=== PATIENT | female | born 1960 | race Caucasian/White ===

== ENCOUNTER → 2018-08-17 10:44 | Outpatient (CLI) | payer OTHER, SELFPAY ==
--- OUTSIDE RECORDS SUMMARY | 2018-10-03 12:52 | XMS RPT_ITS ---
:1960 Author Organization OHIP Care Team Providers Name Role Phone Sima Avelar Attending Unavailable Sima Avelar Referring Unavailable Sima Avelar Attending Unavailable Anjel Parks Primary Care Unavailable PROBLEMS PROBLEMS DATE TYPE CONDITION / CODE ATTENDING STATUS SOURCE 08/17/2018 Unknown R30.0 - Dysuria Sima Avelar Active [place] / R30.0(ICD-10) [facility] Repository PROCEDURES PROCEDURES No Procedure Records FoundRESULTS RESULTS CBC W/DIFF, AUTOMATED Collected: 08/18/2018 Status: F Source: [place] 11:29 AM [facility] TYPE CODE TESTS RESULT OUT OF RANGE REFERENCE UNITS LAB L100.1000 4.4-11.0 K/mm3 Low WBC 4.2 LAB L100.1200 4.2-5.4 M/mm3 Normal RBC 4.74 LAB L100.1300 12.0-15.0 g/dl Normal HGB 12.9 LAB L100.1400 37-47 % Normal HCT 40.6 LAB L100.1500 81-99 fL Normal MCV 85.7 LAB L100.1600 27.0-32.0 pg Normal MCH 27.2 LAB L100.1700 32-36 g/gl Low MCHC 31.8 LAB L100.1810 11.6-14.6 % Normal RDW CV 14.0 LAB L100.1820 35.1-43.9 fl Normal RDW SD 43.1 LAB L100.1900 150-450 K/mm3 Normal PLT 238 LAB L100.2000 6.2-12.0 fl Normal MPV 10.4 LAB L100.2100 47-70 % Normal NEUT% 59.7 LAB L100.2200 19-41 % Normal LY% 30.5 LAB L100.2300 0-10 % Normal MONO% 8.4 LAB L100.2400 0-5 % Normal EO% 1.2 LAB L100.2500 0-1 % Normal BASO% 0.2 LAB L100.2550 0.0-0.9 % Normal IM GRAN % 0.000 Result Comment: IG% - Immature Granulocytes (promyelocytes, myelocytes and metamyelocytes) > 1% indicates that a LEFT SHIFT is Present. LAB L100.2620 2.0-7.7 X10 3/uL Normal Absolute Neut 2.5 LAB L100.2720 0.83-4.51 X10 3/ul Normal Absolute Lymph 1.27 Performed By: #### L100.0100, L500.2500 #### [facility] [place], [address] BASIC METABOLIC Collected: 08/18/2018 Status: F Source: [place] PROFILE (BMP) 11:29 AM [facility] [place] TYPE CODE TESTS RESULT OUT OF RANGE REFERENCE UNITS LAB L501.0100 74-106 mg/dL Normal GLU 80 Result Comment: Please note revised GLUCOSE reference range effective 2017. LAB L501.1000 7-18 mg/dL Normal BUN 15 LAB L501.1100 0.55-1.02 mg/dL Normal CREAT,SERUM 0.79 Result Comment: The validity of the calculated GFR AND GFRAA in patients over 70 years has not been determined. Clinical correlation is essential. LAB L501.1110 >60 mL/min Normal EST GFR 79 Result Comment: Non- GFR Calc LAB L501.1115 >60 mL/min Normal EST GFR - AA 95 Result Comment: GFR Calc LAB L501.1300 10-20 RATIO Normal BUN/CRE 18.9 LAB L501.2200 8.5-10.1 mg/dL CA Normal 8.8 LAB L501.5300 136-145 mmol/L NA Normal 143 LAB L501.5600 3.5-5.1 mmol/L K Normal 4.2 LAB L501.5900 98-107 mmol/L CL Normal 106 LAB L501.6100 21.0-32.0 mmol/L Normal CO2 29.0 LAB L501.6200 5-15 Normal GAP 8 Performed By: #### L100.0100, L500.2500 #### [facility] [address] [place], [address] Observed: 08/16/2018 Status: F Source: MILI CULTURE, URINE 5:05 PM [facility] Urine Culture Below infection level. ORGANISM 1: Mixed Gram Pos AND Gram Neg Org [place] Count 1000-10,000 Performed By: #### M100.0650 #### [facility] [address] [place], [address] ALLERGIES ALLERGIES No Allergies Records FoundENCOUNTERS ENCOUNTERS ADMIT/DISCHARGE ACCOUNT ADMITTING ENCOUNTER LOCATION SOURCE NUMBER CLASS 08/18/2018 [id number] Ambulatory [facility] 1 [facility] ing:MFPLAB Repository 08/17/2018 [id number] Ambulatory [address] ing:LABSPEC Repository PAYERS PAYERS ENCOUNTER GUARANTOR PAYER SUBSCRIBER SOURCE 08/18/2018 MILDRED Grossman Primary MARCELO A [place] [id number] Insurance:MEDICAL ROBERTSDOB: [facility] [id number] Number: Repository [id number]: 330 [id number] [phone] () Date:[id number] [address]KO: 08/18/2018 Secondary NOT GIVENUNK Mili Insurance:SELF PAY [facility] Number: Effective Repository Date:2018-08-18 08/17/2018 MILDRED Grossman Primary MARCELO A [place] [id number] Insurance:MEDICAL ROBERTSDOB: [facility] [id number] Number: Repository [id number]: [phone] [id number] [phone] () Date:5915-17-91TQ [address] [address]LA: 08/17/2018 Secondary NOT GIVENUNK Mili Insurance:SELF [facility]Y [facility]: Effective Repository Date:2018-08-17
== END ==
PROVIDERS: Referring Provider Nurse Practitioner Adult Health; Visit Provider Nurse Practitioner Adult Health
DX: R30.0 Dysuria (principal)
CPT/HCPCS: 87086; 87088

== ENCOUNTER → 2018-08-18 11:27 | Outpatient (CLI) | payer OTHER, SELFPAY ==
[2018-08-18 14:13] LABS: Absolute Lymphocyte Count 1.27 X10^3/ul (0.83-4.51); Absolute Neutrophil Count 2.5 X10^3/uL (2.0-7.7); Basophil# 0.01 X10^3/uL; Basophil% 0.2 % (0-1); Eosinophil# 0.05 X10^3/uL; Eosinophils% 1.2 % (0-5); Hematocrit 40.6 % (37-47); Hemoglobin 12.9 g/dl (12.0-15.0); Lymphocyte # 1.27 X10^3/ul (4.0); Lymphocyte % 30.5 % (19-41); Mean Corp Hgb Conc 31.8 g/gl (32-36); Mean Corpuscular Hgb 27.2 pg (27.0-32.0); Mean Corpuscular Volume 85.7 fL (81-99); Mean Platelet Vol. 10.4 fl (6.2-12.0); Monocyte# 0.35 X10^3/uL; Monocyte% 8.4 % (0-10); Neutrophil # 2.48 X10^3/uL (2.7-7.7); Neutrophil % 59.7 % (47-70); Platelet Count 238 K/mm3 (150-450); RBC Distribution Width SD 43.1 fl (35.1-43.9); Red Blood Count 4.74 M/mm3 (4.2-5.4); White Blood Count 4.2 K/mm3 (4.4-11.0)
[2018-08-18 14:16] LABS: POSITIVE COUNT NO; POSITIVE DIFFERENTIAL NO; POSITIVE MORPHOLOGY NO
[2018-08-18 14:22] LABS: Anion Gap 8 (5-15); BUN 15 mg/dL (7-18); BUN/Creat Ratio 18.9 RATIO (10-20); Calcium,Total 8.8 mg/dL (8.5-10.1); Chloride 106 mmol/L (98-107); Creatinine, Serum 0.79 mg/dL (0.55-1.02); EST Glomerular Filtration Rate 79 mL/min (>60); Est Glom Filt Rate - Afr Amer 95 mL/min (>60); Glucose 80 mg/dL (74-106); Potassium 4.2 mmol/L (3.5-5.1); Sodium Level 143 mmol/L (136-145)
--- OUTSIDE RECORDS SUMMARY | 2018-10-04 06:53 | XMS RPT_ITS ---
:1960 Author Organization OHIP Care Team Providers Name Role Phone Sima Avelar Attending Unavailable Sima Avelar Referring Unavailable Sima Avelar Attending Unavailable Anjel Parks Primary Care Unavailable PROBLEMS PROBLEMS DATE TYPE CONDITION / CODE ATTENDING STATUS SOURCE 08/17/2018 Unknown R30.0 - Dysuria Sima Avelar Active [place] / R30.0(ICD-10) [facility] Repository PROCEDURES PROCEDURES No Procedure Records FoundRESULTS RESULTS CBC W/DIFF, AUTOMATED Collected: 08/18/2018 Status: F Source: MILI 11:29 AM [facility] REPOSITORY TYPE CODE TESTS RESULT OUT OF [...] 1.27 Performed By: #### L100.0100, L500.2500 #### [facility] [place], [address] BASIC METABOLIC Collected: 08/18/2018 Status: F Source: [place] PROFILE (BMP) 11:29 AM [facility] REPOSITORY TYPE CODE TESTS RESULT OUT OF [...] 8 Performed By: #### L100.0100, L500.2500 #### [facility] [address] [place], [address] Observed: 08/16/2018 Status: F Source: MILI CULTURE, URINE 5:05 PM [facility] [place] REPOSITORY Urine Culture Below infection level. ORGANISM 1: Mixed Gram Pos AND Gram Neg Org [place] Count 1000-10,000 Performed By: #### M100.0650 #### [facility] [address] [place], [address] ALLERGIES ALLERGIES No Allergies Records FoundENCOUNTERS ENCOUNTERS ADMIT/DISCHARGE ACCOUNT ADMITTING ENCOUNTER LOCATION SOURCE NUMBER CLASS 08/18/2018 [id number] Ambulatory [facility] 1 [facility] ing:MFPLAB Repository 08/17/2018 [id number] Ambulatory [address] ing:LABSPEC Repository PAYERS PAYERS ENCOUNTER GUARANTOR PAYER SUBSCRIBER SOURCE 08/18/2018 MILDRED Grossman Primary MARCELO A [place] [id number] Insurance:MEDICAL ROBERTSDOB: [facility] [id number] Number: Repository [id number]: 330 [id number] [phone] () Date:[id number] [address]QD: 08/18/2018 Secondary NOT GIVENUNK Mili Insurance:SELF PAY [facility] Number: Effective Repository Date:2018-08-18 08/17/2018 MILDRED Grossman Primary MARCELO A iMli [id number] Insurance:MEDICAL ROBERTSDOB: [facility] 2089[place] Number: Repository [id number]: [phone] [id number] [phone] () Date:[id number] [address] [address]UX: 08/17/2018 Secondary NOT GIVENUNK Mili Insurance:SELF PAY [facility] Number: Effective Repository Date:2018-08-17
== END ==
PROVIDERS: Family Provider Family Medicine; PCP Family Medicine; Visit Provider Nurse Practitioner Adult Health
DX: R35.0 Frequency of micturition (principal)
CPT/HCPCS: 36415; 80048; 85025

== ENCOUNTER → 2019-09-20 17:43 | Outpatient (CLI) | payer OTHER, SELFPAY ==
[2019-09-25 16:32] LABS: HPV Reflexed? NOT INDICATED
== END ==
PROVIDERS: PCP Family Medicine; Referring Provider Nurse Practitioner Adult Health; Visit Provider Nurse Practitioner Adult Health
DX: Z01.419 Encounter for gynecological examination (general) (routine) without abnormal findings (principal)
CPT/HCPCS: 88175; G0145

== ENCOUNTER → 2019-11-11 10:39 | Outpatient (CLI) | payer OTHER, SELFPAY | PROVIDERS: PCP Family Medicine; Referring Provider Family Medicine; Visit Provider Family Medicine | DX: N39.0 Urinary tract infection, site not specified (principal) | CPT/HCPCS: 87086; 87088 ==

== ENCOUNTER 2020-06-25 05:56 | Day surgery (SDC) | payer OTHER, SELFPAY ==
--- NOTE | 2020-06-18 16:10 | EKG12_ITS ---
Test Reason : PREOP Blood Pressure : / mmHG Vent. Rate : 066 BPM Atrial Rate : 066 BPM P-R Int : 148 ms QRS Dur : 078 ms QT Int : 392 ms P-R-T Axes : 047 047 047 degrees QTc Int : 410 ms Normal sinus rhythm Normal ECG Confirmed by ANTHONY WERNER, NAYAN ([id number]), editorial clerk NILS FOURNIER ([id number]) on 06/19/2020 9:25:23 AM Referred By: Ally Zapien Confirmed By:NAYAN CRUZ MD
[2020-06-25] VITALS (7 sets, daily range): BP systolic 99–117; BP diastolic 65–74; PULSE 51–60; RESP 16; TEMP 36.2–36.6; O2SAT 97–100; BMI 27.1
[2020-06-25] MEDS: Lactated Ringers 1,000 ML 100 ML IV (07:00)
--- NOTE | 2020-06-25 07:22 | PCM.HP.STD ---
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 She now presents for biopsy under anesthesia with fulguration for treatment of tissue and hemostasis. Informed consent was obtained including a discussion of the risks of COVID-19.] Past Medical History Allergies No Known Allergies Allergy (Verified 06/25/20 06:42) Home Medications: Ambulatory Orders Medication Instructions Recorded NK 06/17/20 Smoking Status: Never smoker Tobacco Use: Non-smoker Review of Systems Constitutional: Denies: Anorexia, Chills, Fever, Night Sweats Eyes: Denies: Vision Change HEENT: Denies: Difficulty Swallowing, Visual Changes Cardiovascular: Denies: Chest Pain, Chest Pressure Respiratory: Denies: Cough, Shortness of Breath Gastrointestinal: Denies: Abdominal Pain, Nausea, Vomiting Genitourinary: Reports: Nocturia, Urgency. Denies: Dysuria, Hematuria, Hesitancy, Retention Gynecological: Denies: Vaginal itching Musculoskeletal: Denies: Muscle pain Skin: Denies: Wounds Neurological: Denies: Difficulty swallowing Endocrine: Denies: Change in Body Habitus VTE Information - Inpt Only VTE Present on Admission: Yes VTE Mechan Device Prophylaxis: SCD's VTE Pharm Prophylaxis ordered?: No Reason prophylaxis not ordered:: Treatment Not Indicated - Physical Exam Vitals/I&O's: Vital Signs Temp Pulse Resp BP Pulse Ox 97.8 F 60 16 117/69 97 06/25/20 06:43 06/25/20 06:43 06/25/20 06:43 06/25/20 06:43 06/25/20 06:43 Oxygen Delivery Method Room Air Weight: 78.6 kg Body Mass Index (BMI) 27.1 General: Alert, Oriented x3, Cooperative, No apparent distress HEENT: Atraumatic, Normocephalic Oral: Moist Mucosa Neck: Supple, Trachea Midline Lungs: Normal air movement Cardiovascular: Regular rate, Regular Rhythm Abdomen: Soft, Non Tender, Non-Distended Extremities: No clubbing, No cyanosis Skin: No rashes Musculoskeletal: No Muscle Wasting Neurological: Cranial nerves II-XII grossly intact, Neuro grossly intact Psych/Mental Status: Normal Affect, Alert and oriented to time, place, person, mood and affect Current Medications Cefazolin Sodium 2 gm/ Sodium (Chloride) 110 mls @ 150 mls/hr IV PREOP ONE Stop: 06/25/20 07:43 Lactated Ringer's () 1,000 mls @ 100 mls/hr IV .Q10H MARIBEL Last Admin: 06/25/20 07:00 Dose: 100 mls/hr Documented by: Assessment/Plan All Active Problems Neoplasm of uncertain behavior of bladder (Acute) Nocturia (Acute) Urgency of urination (Acute) Proceed with cystoscopy, bladder biopsy with fulguration Procedure Criteria Procedure Type: Elective COVID Risk Discussion: The surgeon/proceduralist and patient have discussed in detail the risk of exposure to and/or potential harm posed by the COVID-19 virus with having a surgery/procedure at this time versus the risk of delaying the surgery/procedure. It is not possible to know either the risk of delaying the surgery or procedure or chance of getting an infection with perfect accuracy, but a joint decision was made between the patient and the surgeon/proceduralist to proceed at this time with the scheduled surgery/procedure as indicated on the consent form.
[2020-06-25] MEDS: Cefazolin 2 GM in 0.9% Normal Saline 100 ML IV (07:29)
--- NOTE | 2020-06-25 07:30 | BLA_PTH ---
PATIENT: MARCELO KRUGER LOC: [facility] [place] U#:[id number] AGE/SX: 60/F ROOM: RE06/25/[address]: Dr. Ally Zapien MD : 1960 BED: DIS: 06/25/2020 SPEC #: [id number] RECD: 06/25/20 09:28 STATUS: OTIS KG #: [id number] RAZIA: 06/25/20 07:[address]: Ally Zapien DEPT: SURGICAL PATHOLOGY RECD BY: Erika Barfield ENTERED: 06/25/20 13:08 SP TYPE: BLADDER BX OTHR DR: Dr. Anjel Parks MD Tissues: Urinary bladder, NOS Procedures: Surgery Specimen Level IV HEADER OPERATION: Cystoscopy, bladder biopsy, fulguration PRE-OP DIAGNOSIS: Neoplasm of bladder, urgency, nocturia TISSUE SUBMITTED: Bladder biopsies MICROSCOPIC DIAGNOSIS Bladder, biopsy: Fragments of urothelial mucosa with moderate chronic inflammation, congestion and minimal acute inflammation. Negative for malignancy. See comment. CORINA:yoav 06/26/20 COMMENT Detrusor muscle is present in the submitted specimen. The epithelium is predominantly denuded. A few minute fragments of detached epithelium is noted and shows mild epithelial atypia, favor reactive. Clinical correlation and appropriate follow up are necessary. MICROSCOPIC DESCRIPTION Slides are reviewed. GROSS DESCRIPTION Received in fixative is one container labeled with the patient's name and designated bladder biopsy. The specimen consists of three irregular fragments of light hansen soft tissue that in aggregate measure 0.6 x 0.2 x 0.1 cm. The specimen is totally submitted in one cassette. / CORINA:yoav 06/25/20 TC:3 CPT: 24180
--- NOTE | 2020-06-25 07:35 | PCM.OPRPT ---
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 After obtaining informed consent, she was brought to the operating room today for definitive management. Patient was taken to the operating room and placed on the operating room table. Anesthesia monitored the head, neck, airway and IV access during the procedure. Once anesthesia was appropriately administered the patient was placed into dorsal lithotomy position and was prepped and draped in usual sterile fashion. A cystourethroscopy confirmed visualization of 4 separate ulcerations. 1 approximately 1 cm on the right lateral bladder wall, 2 smaller ulcerations in the left bladder dome and 1 ulceration approximately 1 cm in size in the posterior left aspect of the bladder wall. Biopsy forceps were used to obtain samplings of the ulcerations. These areas were then fulgurated for hemostatic control and tissue treatment. The patient's bladder was then emptied and the case was terminated. The patient tolerated the procedure without complications. She was taken to the recovery room in good condition. Grafts/Implants Used: none - Complications none - Admit VTE Documentation VTE Present on Admission: Yes VTE Mechan Device Prophylaxis: SCD's VTE Pharm Prophylaxis ordered?: No Reason prophylaxis not ordered:: Treatment Not Indicated
[2020-06-25] MEDS: Lubricating Jelly 60 GM Tube 30 GM TOPICAL (07:47)
--- NOTE | 2020-06-25 08:10 | PCM.DC.URO ---
Discharge Diet: No Restrictions Discharge Activity: May not drive while taking narcotic pain medications., May Shower, May Take a Tub Bath Call your doctor if you observe: Fever of 101 or Higher, Inability to urinate, Inability to have a bowel movement Allergies/Adverse Reactions: Allergies No Known Allergies Allergy (Verified 06/25/20 06:42) Medications to take at Discharge Cephalexin [Keflex] 500 mg PO Q12 3 Days #6 cap 06/25/20 Oxycodone HCl/Acetaminophen [Percocet 5/325] 2 tab PO Q8H PRN PRN 3 Days #10 tab 06/25/20 Phenazopyridine HCl [Pyridium] 200 mg PO TID PRN PRN 7 Days #30 tab 06/25/20 The following prescriptions were given: Cephalexin [Keflex] 500 mg PO Q12 3 Days #6 cap Transmission Status[facility] Oxycodone HCl/Acetaminophen [Percocet 5/325] 2 tab PO Q8H PRN PRN 3 Days #10 tab PRN Reason: Pain Transmission Status: [facility] Phenazopyridine HCl [Pyridium] 200 mg PO TID PRN PRN 7 Days #30 tab PRN Reason: Bladder Spasms Transmission Status: Re[facility] by [facility] Primary Care Physician: Momo Parks MD [Primary Care Provider] - Test Results: Test results from this visit will be discussed in further detail at your follow-up appointment, if applicable. Please Follow Up With: Ally Zapien MD When: call for appt to be seen in 1 week Proposed Discharge Date: 06/25/20
== END 2020-06-25 09:35 | disposition home or self-care (01) ==
LOC: SDC 05:56 → AC 06:01
PROVIDERS: Anesthesiology; PCP Family Medicine; Referring Provider Urology; Visit Provider Urology
PROC: 0TBB8ZX Excision of Bladder, Via Natural or Artificial Opening Endoscopic, Diagnostic (ICD-10-PCS; CPT 52204; principal; 2020-06-25 07:20)
DX: D41.4 Neoplasm of uncertain behavior of bladder (principal); R35.1 Nocturia; R39.15 Urgency of urination; Z20.818 Contact with and (suspected) exposure to other bacterial communicable diseases
CPT/HCPCS: 00910; 52204; 87635; 88305; 93005; C9803; J7120; J2405; U0003

== ENCOUNTER → 2020-12-10 15:29 | Outpatient (CLI) | payer OTHER, SELFPAY ==
[2020-06-25 06:43] VITALS: BMI 27.1
[2020-12-10 15:32] LABS: Mucous, Urine 0 SEEN /hpf (<or=2+); White Blood Cells 0 SEEN /hpf (0-5)
[2020-12-10 18:17] LABS: Color, Urine Yellow (Yellow); Glucose, Dipstick Normal (Normal); Ketone-Dipstick Negative (Negative); Leukocyte Esterase-Dipstick Negative /ul (Negative); Nitrite-Dipstick Negative (Negative); Occult Blood-Urine 50 /ul (Negative); Protein-Dipstick Negative (Negative); Specific Gravity, Urine 1.015 (1.002-1.030); Urine Bilirubin Dipstick Negative (Negative); Urine Clarity Clear (Clear); Urine Urobilinogen Normal (Normal)
[2020-12-10 18:33] LABS: Anion Gap 3 (5-15); BUN 18 mg/dL (7-18); BUN/Creat Ratio 21.6 RATIO (10-20); Bacteria 2+ /hpf (None Seen); Chloride 105 mmol/L (98-107); Creatinine, Serum 0.83 mg/dL (0.55-1.02); EST Glomerular Filtration Rate 74 mL/min (>60); Est Glom Filt Rate - Afr Amer 89 mL/min (>60); Glucose 81 mg/dL (74-106); Potassium 4.3 mmol/L (3.5-5.1); Red Blood Cells-Urine 0-5 SEEN /hpf (0-5); Sodium Level 138 mmol/L (136-145); Squamous Epithelial Cells - UA 0-5 SEEN /hpf (5-10); T4 Free Direct 0.74 ng/dL (0.76-1.46); Thyroid Stim Hormone (TSH) 4.59 uIU/mL (0.358-3.74)
== END ==
PROVIDERS: PCP Family Medicine; Visit Provider Family Medicine
DX: R94.6 Abnormal results of thyroid function studies (principal); R31.9 Hematuria, unspecified; Z13.1 Encounter for screening for diabetes mellitus
CPT/HCPCS: 36415; 80048; 81001; 84439; 84443

== ENCOUNTER → 2020-12-17 17:00 | Outpatient (CLI) | payer OTHER, SELFPAY ==
[2020-06-25 06:43] VITALS: BMI 27.1
--- NOTE | 2020-12-17 16:53 | BI_ITS ---
MAMMOGRAPHY - BILATERAL SCREENING REASON FOR EXAM: Female, 60 years old. Routine annual screening examination. PERTINENT HISTORY: Non-contributory. TECHNIQUE: Digital bilateral breast sofia (3D mammographic acquisition) in the CC and MLO projections. 2-D mediolateral oblique (MLO) and craniocaudad (CC) views of both breasts were obtained. CAD: Full Field Digital Mammography with Computer Added Detection was performed. COMPARISON: Comparison is made with prior outside examination dated 12/12/2008. FINDINGS: Breast Composition: The breasts are heterogeneously dense, which may obscure small masses. There is a 7.3 mm x 1 cm spiculated nodule in the axillary region of the left breast. There is also evidence of a 1 cm x 1 cm spiculated nodule in the deep slightly upper medial portion of the left breast. Correlation with ultrasound of the 2 spiculated nodules is recommended. No other significant abnormalities are identified. BI/SCRN MAMM (CAD)W/SOFIA BILAT IMPRESSION: 7.3 mm x 1 sinus Reba nodule in the left axillary region as well as a 1 cm x 1 sinus progression nodule in the deep slightly upper medial portion of left breast as described. Correlation with ultrasound is recommended. ASSESSMENT CATEGORY: BIRADS Category 0: Incomplete. Need additional imaging evaluation. A letter regarding these results will be sent to the patient by the facility within 30 days. Approximately 10% of breast cancers are not detected by mammography. A normal mammogram should not delay biopsy of a clinically suspicious abnormality. [id number] Electronically Signed: Benjy Peterson MD at 8:39 EDT , Service support ,
== END ==
PROVIDERS: PCP Family Medicine; Referring Provider Family Medicine; Visit Provider Family Medicine
DX: Z12.31 Encounter for screening mammogram for malignant neoplasm of breast (principal)
CPT/HCPCS: 77063; 77067

== ENCOUNTER → 2020-12-23 14:58 | Outpatient (CLI) | payer OTHER, SELFPAY ==
[2020-06-25 06:43] VITALS: BMI 27.1
--- NOTE | 2020-12-23 15:01 | US_ITS ---
STUDY: ULTRASOUND BREAST - LEFT REASON FOR EXAM: Female, 60 years old. Abnormal screening mammogram. TECHNIQUE: Axial and longitudinal images of the LEFT breast were performed with a high resolution ultrasound transducer. # OF IMAGES: 24 COMPARISON: Comparison is made with prior mammogram dated 12/17/2020. FINDINGS: LEFT Breast: There is a hypoechoic irregular nodule with shadowing at the 11 o''clock position of the breast at 5 cm from the nipple. This measures 6 mm x 6 mm x 9 mm. Biopsy is recommended. A similar appearing hypoechoic irregular nodule is seen at the 10 o''clock position the breast at 4 cm from nipple. This measures 1 cm x 0.9 cm x 0.8 cm. US/Breast Limited Unilateral IMPRESSION: 2 suspicious nodules at the 10 o''clock and 11 o''clock position of the breast as described. Biopsy is recommended. ASSESSMENT CATEGORY: BIRADS Category 4: Suspicious - Biopsy Should Be Considered. A letter regarding these results will be sent to the patient by the facility within 30 days. Electronically Signed: Benjy Peterson MD at 15:37 EDT , Service support ,
== END ==
PROVIDERS: PCP Family Medicine; Referring Provider Family Medicine; Visit Provider Family Medicine
DX: R92.8 Other abnormal and inconclusive findings on diagnostic imaging of breast (principal); N63.22 Unspecified lump in the left breast, upper inner quadrant
CPT/HCPCS: 76642

== ENCOUNTER → 2021-02-26 09:56 | Outpatient (CLI) | payer OTHER, SELFPAY ==
[2020-06-25 06:43] VITALS: BMI 27.1
[2021-02-26 12:55] LABS: Cholesterol 214 mg/dL (200); High Density Lipoprotein 51 mg/dL; T4 Free Direct 1.05 ng/dL (0.76-1.46); Thyroid Stim Hormone (TSH) 2.34 uIU/mL (0.358-3.74); Triglycerides 83 mg/dL; Very Low Density Lipoprotein 17 mg/dL (5-40)
== END ==
PROVIDERS: PCP Family Medicine; Referring Provider Family Medicine; Visit Provider Family Medicine
DX: E03.9 Hypothyroidism, unspecified (principal); Z13.220 Encounter for screening for lipoid disorders
CPT/HCPCS: 36415; 80061; 84439; 84443

== ENCOUNTER → 2021-06-26 10:28 | Outpatient (CLI) | payer OTHER, SELFPAY ==
--- NOTE | 2021-06-26 11:20 | RAD_ITS ---
STUDY: X-RAY - LUMBAR SPINE REASON FOR EXAM: Female, 61 years old. PAIN, NKI TECHNIQUE: 4 view(s) of the lumbar spine were obtained. COMPARISON: None FINDINGS: Normal lumbar lordosis. Moderate levoscoliosis of the thoracolumbar spine. There is a normal alignment of the vertebrae. Normal vertebral bodies and endplates. Normal disc space heights. Facet hypertrophy lower lumbar spine consistent with degenerative disc disease. The soft tissue structures are unremarkable. RAD/L/S Spine Min 4 Views IMPRESSION: Moderate levoscoliosis of the thoracic lumbar spine with degenerative disc disease in lower lumbar spine. Electronically Signed: Yung Garcia MD at 8:24 EDT Tel , Service support ,
== END ==
PROVIDERS: PCP Family Medicine; Visit Provider Chiropractor
DX: S33.5XXA Sprain of ligaments of lumbar spine, initial encounter (principal); X58.XXXA Exposure to other specified factors, initial encounter; Y93.9 Activity, unspecified; Y92.9 Unspecified place or not applicable; Y99.9 Unspecified external cause status
CPT/HCPCS: 72110

== ENCOUNTER 2021-11-12 11:57 | Outpatient (CLI) | payer OTHER, SELFPAY ==
[2021-11-12 15:34] LABS: Anion Gap 4 (5-15); BUN 19 mg/dL (7-18); BUN/Creat Ratio 21.3 RATIO (10-20); Calcium,Total 9.4 mg/dL (8.5-10.1); Chloride 103 mmol/L (98-107); Creatinine, Serum 0.89 mg/dL (0.55-1.02); EST Glomerular Filtration Rate 68 mL/min (>60); Est Glom Filt Rate - Afr Amer 82 mL/min (>60); Glucose 87 mg/dL (74-106); Magnesium 2.8 mg/dL (1.6-2.6); Phosphorus 4.1 mg/dL (2.5-4.9); Potassium 4.1 mmol/L (3.5-5.1); Sodium Level 138 mmol/L (136-145); T4 Free Direct 1.07 ng/dL (0.76-1.46); Thyroid Stim Hormone (TSH) 2.75 uIU/mL (0.358-3.74)
[2021-11-12 15:39] LABS: PTHIN 50.6 pg/mL (18.4-80.1)
== END 2021-11-12 23:59 | disposition home or self-care (01) ==
LOC: MFPLAB 11:58
PROVIDERS: PCP Family Medicine; Referring Provider Family Medicine; Visit Provider Family Medicine
DX: M81.0 Age-related osteoporosis without current pathological fracture (principal); E03.9 Hypothyroidism, unspecified
CPT/HCPCS: 36415; 80048; 82306; 82330; 83735; 83970; 84100; 84439; 84443

== ENCOUNTER 2021-12-16 07:00 | Outpatient (RCR) | payer OTHER, SELFPAY ==
--- NOTE | 2021-11-18 17:07 | HP.PTEVAL ---
Patient's Visit Information MARCELO KRUGER is a 61 year old F referred to Physical Therapy by Dr. Momo Parks MD with a diagnosis of SCOLIOSIS AND BACK PAIN. Date of Evaluation: 11/18/21 Physical Therapist: Zak Looney PT, Cert MDT, OCS - Visit Plan Frequency: 1-2x /Week Duration: 4 Weeks Plan: PT INTERVTIONS LUMBAR/THORACIC STRETCHING,POSTURAL EX'S, AND DLS AND/BACK - Subjective This 61 y/o female presents to physical therapy with back pain scoliosis. Patient has intermittent back many years. Pain located symmetrical lumbar. Patient has had x-rays DDD /scoliosis . Patient has had chiropractor in past . Patient aggravating. lifting, bending ,sitting to get up ,driving 2 hours. Alleviating factors exercises and rest. Denies paresthesia/tingling. Bowel/bladder-. Coughing/sneezing-. Concerned about slowing process of scoliosis . Patient able to sleep. Patient goals to improve posture and scoliosis. SOCIAL: . VOCATION: [employer]ing [employer]. - Pain Bilateral Back Pain Intensity (Out of 10): 2 - Objective POSTURE: mild forward posture, right pelvis elevated ,left scoliosis ,decrease lordosis. GAIT: reciprocal pattern ,scoliosis right ,leans backward. NEURO: denies paresthesia/tingling, reflexes L3-4,L4-5,L5-S1 1/3. MMT: quads/hams 4/5 hip flexion 4/5 ,hip abd 4-/5,ankle 4/5. FLEXABLITY: hamstrings min tight. LUMBAR ROM: flexion mod loss ,mod loss ,side glides min /mod loss - Special Tests L/S Slump test left side: Negative L/S Slump test right side: Negative L/S Left Straight Leg Raise: Negative L/S Right Straight Leg Raise: Negative - Balance/Special Test Scores Oswestry Low Back Score: 14 - Goals Goal 1:: Patient to be I with HEP for posture and DLS Goal Time Frame: 4-6 Weeks Goal 2:: Patient improve lumbar ROM for function of recovery for ADLS and job demands Goal Time Frame: 4-6 Weeks Goal 3:: Patient improve posture and positioning 60% of the time to improve function. Goal Time Frame: 4-6 Weeks Goal 4:: Patient to improve back oswestry score by 5 points or > to improve function and QOL Goal Time Frame: 4-6 Weeks Goal 5:: Patient to demonstrate 50% improvement with increase function and transitional movements job and housework tasks Goal Time Frame: 4-6 Weeks - Rehabilitation Potential Physical Therapy Diagnosis: Patient has postural deficits with scoliosis with some pain with transitional movement due to back and generalized weakness. thus will benefit from skilled PT Rehabilitation Potential: Good - Anticipated Interventions Patient/Client Instruction: Educate patient on: Condition, Plan of Care For the Purpose of:: To decrease pain, To increase ROM, To improve muscle performance and motor function, To improve ability to perform ADL's, To increase tolerance to activity/condition/position, To improve ability of physical actions for home/community/work/leisure, To improve health of tissue, To decrease soft tissue restriction, To increase flexibility/ROM, To reduce risk of recurrence, To prevent re-injury Therapeutic Exercise to Include: Strength training, Endurance training, Body mechanics, Postural training, Flexibilty training, Active ROM, Dynamic Lumbar Stabilization For the Purpose of:: To decrease pain, To increase ROM, To improve ability to perform ADL's, To increase tolerance to activity/condition/position, To improve ability of physical actions for home/community/work/leisure, To improve health of tissue, To decrease soft tissue restriction, To increase flexibility/ROM Thank you for the opportunity to evaluate your patient. For Medicare and Medicare HMO plans, please review the plan of care and approve it. It will need to be FAXED BACK to us at [phone] for Medicare purposes. For Medicare only, by signing this I certify the plan of care. Please let me know if there are questions or concerns regarding this plan of care. Physician Signature: Date:
--- NOTE | 2021-12-16 07:32 | HP.PTDCSUM ---
It has been my pleasure to treat MARCELO KRUGER referred by Dr. Momo Parks MD, with the diagnosis of SCOLIOSIS AND BACK PAIN for a total of 5 visit(s). Discharge Date: 12/16/21 Please see the following information for a summary of their discharge status. Subjective: Doing bettter Bilateral Back Pain Intensity (Out of 10): 0 % Improvement: 50 Objective/Function: POSTURE: SCOLIOSIS. GAIT:RECIPROCAL PATTERN. MMT: 4/5 BLE. LUMBAR ROM: flexion min loss, extension min loss left roation Goal 1:: Patient to be I with HEP for posture and DLS Goal Progress: Goal Met Goal 2:: Patient improve lumbar ROM for function of recovery for ADLS and job demands Goal Progress: Goal Met Goal 3:: Patient improve posture and positioning 60% of the time to improve function. Goal Progress: Goal Met Goal 4:: Patient to improve back oswestry score by 5 points or > to improve function and QOL Goal Progress: Goal Met Goal 5:: Patient to demonstrate 50% improvement with increase function and transitional movements job and housework tasks Goal Progress: Goal Met Plan: D/C Discharge Comments: hep If there are questions or concerns regarding this patient's physical therapy, please feel free to call me at [phone]. Thank you for the referral of this patient. Sincerely, Zak Looney PT, Cert MDT, OCS Balance/Gait/Functional tests - Balance/Special Test Scores Oswestry Low Back Score: 1
== END 2021-12-16 19:00 | disposition home or self-care (01) ==
LOC: PT 07:00
PROVIDERS: PCP Family Medicine; Referring Provider Family Medicine; Visit Provider Family Medicine
DX: M41.9 Scoliosis, unspecified (principal); M54.9 Dorsalgia, unspecified
CPT/HCPCS: 97110; 97162

== ENCOUNTER → 2022-01-16 | Outpatient (CLI) | payer OTHER, SELFPAY ==
[2022-01-16 09:05] VITALS: BP 134/82; PULSE 68; RESP 16; TEMP 36.2; O2SAT 100
[2022-01-16] MEDS: 0.9% NaCl Peripheral Flush Adult/Peds IV (09:18)
[2022-01-16] MEDS: Zoledronic Acid 5 MG 100 ML 150 MG IV (09:21)
[2022-01-16 10:02] VITALS: BP 128/68; PULSE 61; RESP 12; TEMP 36.3; O2SAT 98
== END | disposition home or self-care (01) ==
LOC: MEDOUTP 08:42
PROVIDERS: PCP Family Medicine; Referring Provider Family Medicine; Visit Provider Family Medicine
DX: M81.0 Age-related osteoporosis without current pathological fracture (principal)
CPT/HCPCS: 96365; A4216; J3489

== ENCOUNTER → 2022-11-24 | Outpatient (CLI) | payer OTHER, SELFPAY ==
[2022-11-24 13:04] LABS: ALB/GLOB Ratio 1.2 RATIO (0.9-2.4); AST(SGOT) 18 U/L (15-37); Alanine Aminotransfer ALT/SGPT 32 U/L (13-56); Albumin, Serum 3.7 g/dL (3.2-5.0); Alkaline Phosphatase 49 U/L (45-117); Anion Gap 6 (5-15); BUN 20 mg/dL (7-18); BUN/Creat Ratio 22.1 RATIO (10-20); Calcium,Total 9.2 mg/dL (8.5-10.1); Chloride 105 mmol/L (98-107); Cholesterol 246 mg/dL (200); EST Glomerular Filtration Rate 67 mL/min (>60); Est Glom Filt Rate - Afr Amer 81 mL/min (>60); Globulin 3.1 g/dL (2.2-4.2); Glucose 90 mg/dL (74-106); High Density Lipoprotein 60 mg/dL; Potassium 4.4 mmol/L (3.5-5.1); Protein, Total 6.8 g/dL (6.4-8.2); Sodium Level 141 mmol/L (136-145); T4 Free Direct 1.01 ng/dL (0.76-1.46); Thyroid Stim Hormone (TSH) 2.85 uIU/mL (0.358-3.74); Triglycerides 97 mg/dL; Very Low Density Lipoprotein 19 mg/dL (5-40)
== END | disposition home or self-care (01) ==
PROVIDERS: PCP Family Medicine; Referring Provider Family Medicine; Visit Provider Nurse Practitioner Family
DX: E03.9 Hypothyroidism, unspecified (principal); Z13.1 Encounter for screening for diabetes mellitus; Z13.220 Encounter for screening for lipoid disorders
CPT/HCPCS: 36415; 80053; 80061; 84439; 84443

== ENCOUNTER 2023-02-26 13:15 | Outpatient (CLI) | payer OTHER, SELFPAY ==
[2023-02-26 13:22] VITALS: BP 135/68; PULSE 61; RESP 12; TEMP 36.1; O2SAT 98; BMI 26.4
[2023-02-26] MEDS: 0.9% NaCl Peripheral Flush Adult/Peds IV (13:52)
[2023-02-26] MEDS: Zoledronic Acid 5 MG 100 ML 150 MG IV (13:52)
[2023-02-26 14:35] VITALS: BP 114/70; PULSE 55; RESP 16; TEMP 36.3
== END 2023-02-26 13:16 | disposition home or self-care (01) ==
LOC: MEDOUTP 13:17
PROVIDERS: PCP Family Medicine; Referring Provider Family Medicine; Visit Provider Family Medicine
DX: M81.0 Age-related osteoporosis without current pathological fracture (principal)
CPT/HCPCS: 96365; A4216; J3489

== ENCOUNTER → 2023-11-30 | Outpatient (CLI) | payer OTHER, SELFPAY ==
[2023-11-30 10:58] LABS: Vitamin D,25 Hydroxy 37.7 ng/mL
[2023-11-30 11:09] LABS: Anion Gap 6 (5-15); BUN 18 mg/dL (7-18); BUN/Creat Ratio 17.3 RATIO (10-20); Chloride 108 mmol/L (98-107); Cholesterol 247 mg/dL (200); Creatinine, Serum 1.04 mg/dL (0.55-1.02); EST Glomerular Filtration Rate 57 mL/min (>60); Est Glom Filt Rate - Afr Amer 68 mL/min (>60); Glucose 99 mg/dL (74-106); High Density Lipoprotein 56 mg/dL; Potassium 3.9 mmol/L (3.5-5.1); Sodium Level 141 mmol/L (136-145); T4 Free Direct 1.04 ng/dL (0.76-1.46); Thyroid Stim Hormone (TSH) 4.05 uIU/mL (0.358-3.74); Triglycerides 99 mg/dL; Very Low Density Lipoprotein 20 mg/dL (5-40)
== END | disposition home or self-care (01) ==
LOC: MFPLAB 08:10
PROVIDERS: PCP Family Medicine; Visit Provider Family Medicine
DX: E78.5 Hyperlipidemia, unspecified (principal); M81.0 Age-related osteoporosis without current pathological fracture; E03.9 Hypothyroidism, unspecified
CPT/HCPCS: 36415; 80048; 80061; 82306; 84439; 84443

== ENCOUNTER 2024-02-29 12:51 | Outpatient (CLI) | payer OTHER, SELFPAY ==
[2024-02-29 13:03] VITALS: BP 122/70; PULSE 75; RESP 16; TEMP 36.1; O2SAT 94; BMI 25.8
[2024-02-29] MEDS: Zoledronic Acid 5 MG 100 ML 120 MG IV (13:10)
[2024-02-29 14:01] VITALS: BP 102/65; PULSE 67; RESP 16
== END 2024-02-29 23:59 | disposition home or self-care (01) ==
LOC: MEDOUTP 12:52
PROVIDERS: PCP Family Medicine; Referring Provider Family Medicine; Visit Provider Family Medicine
DX: E55.9 Vitamin D deficiency, unspecified (principal); M81.0 Age-related osteoporosis without current pathological fracture
CPT/HCPCS: 96365; A4216; J3489

== ENCOUNTER → 2024-03-01 | Outpatient (CLI) | payer OTHER, SELFPAY ==
[2024-03-01 10:18] LABS: Absolute Lymphocyte Count 0.84 X10^3/uL (0.83-4.51); Absolute Neutrophil Count 6.7 X10^3/uL (2.0-7.7); Basophil# 0.02 X10^3/uL; Basophil% 0.3 % (0-1); Eosinophil# 0.06 X10^3/uL; Eosinophils% 0.8 % (0-5); Hematocrit 37.5 % (37-47); Hemoglobin 12.2 g/dL (12.0-15.0); Lymphocyte # 0.84 X10^3/ul (0.83-4.51); Lymphocyte % 10.5 % (19-41); Mean Corp Hgb Conc 32.5 g/dL (32-36); Mean Corpuscular Volume 89.1 fL (81-99); Mean Platelet Vol. 10.2 fl (6.2-12.0); Monocyte# 0.34 X10^3/uL; Monocyte% 4.3 % (0-10); NRBC Flagged by Analyzer 0 % (0-5); Neutrophil % 83.7 % (47-70); Platelet Count 405 K/mm3 (150-450); RBC Distribution Width SD 42.4 fl (35.1-43.9); Red Blood Count 4.21 M/mm3 (4.2-5.4)
[2024-03-01 10:50] LABS: ALB/GLOB Ratio 0.7 RATIO (0.9-2.4); AST(SGOT) 16 U/L (15-37); Alanine Aminotransfer ALT/SGPT 22 U/L (13-56); Albumin, Serum 3.1 g/dL (3.2-5.0); Alkaline Phosphatase 65 U/L (45-117); Anion Gap 7 (5-15); BUN 15 mg/dL (7-18); BUN/Creat Ratio 15.8 RATIO (10-20); Chloride 106 mmol/L (98-107); Creatinine, Serum 0.95 mg/dL (0.55-1.02); EST Glomerular Filtration Rate 63 mL/min (>60); Est Glom Filt Rate - Afr Amer 76 mL/min (>60); Globulin 4.4 g/dL (2.2-4.2); Glucose 92 mg/dL (74-106); Potassium 3.9 mmol/L (3.5-5.1); Protein, Total 7.5 g/dL (6.4-8.2); Sodium Level 139 mmol/L (136-145)
[2024-03-02 13:08] LABS: Lyme IGG CIA Positive (Negative); Lyme IGM CIA Positive (Negative); Lyme Scn Total Ab w/Rflx Positive (Negative)
== END | disposition home or self-care (01) ==
PROVIDERS: PCP Family Medicine; Referring Provider Family Medicine; Visit Provider Family Medicine
DX: R21 Rash and other nonspecific skin eruption (principal)
CPT/HCPCS: 36415; 80053; 85025; 86140; 86618

== ENCOUNTER → 2024-12-06 | Outpatient (CLI) | payer OTHER, SELFPAY ==
[2024-12-06 15:53] LABS: PTHIN 50 pg/mL (11-61)
[2024-12-06 17:03] LABS: Cholesterol 220 mg/dL (<=200); High Density Lipoprotein 51 mg/dL; Low Density Lipoprotein Calc. 153 mg/dL; Triglycerides 82 mg/dL; Very Low Density Lipoprotein 16 mg/dL (5-40); Vitamin D,25 Hydroxy 85.7 ng/mL (30-100); cholesterol:hdl ratio screen 4.31
[2024-12-06 18:05] LABS: Anion Gap 11 (5-15); BUN 18 mg/dL (4-19); BUN/Creat Ratio 18.6 RATIO (10-20); Carbon Dioxide 24.4 mmol/L (21.0-32.0); Chloride 104 mmol/L (98-108); Creatinine, Serum 0.97 mg/dL (0.70-1.20); EST Glomerular Filtration Rate 65 (>60); Glucose 74 mg/dL (70-99); Potassium 4.2 mmol/L (3.3-5.1); Sodium Level 139 mmol/L (133-145)
== END | disposition home or self-care (01) ==
LOC: MFPLAB 08:57
PROVIDERS: PCP Family Medicine; Referring Provider Family Medicine; Visit Provider Family Medicine
DX: Z00.00 Encounter for general adult medical examination without abnormal findings (principal); E03.9 Hypothyroidism, unspecified; M81.0 Age-related osteoporosis without current pathological fracture; E78.5 Hyperlipidemia, unspecified
CPT/HCPCS: 36415; 80048; 80061; 82306; 83970; 84439; 84443

== ENCOUNTER 2025-03-02 11:50 | Outpatient (CLI) | payer OTHER, SELFPAY ==
[2025-03-02 12:04] VITALS: BP 122/76; PULSE 69; RESP 16; TEMP 36.8; O2SAT 96
[2025-03-02] MEDS: 0.9% NaCl Peripheral Flush Adult IV (12:06)
[2025-03-02] MEDS: Zoledronic Acid 5 MG 100 ML 200 MG IV (12:09)
[2025-03-02] MEDS: 0.9% NaCl IVPB Med Flush (100mL) 15 ML IV (12:09)
[2025-03-02 12:58] VITALS: BP 136/77; PULSE 66; RESP 16
== END 2025-03-02 23:59 | disposition home or self-care (01) ==
LOC: MEDOUTP 11:50
PROVIDERS: PCP Family Medicine; Referring Provider Family Medicine; Visit Provider Family Medicine
DX: M81.0 Age-related osteoporosis without current pathological fracture (principal)
CPT/HCPCS: 96365; A4216; J3489